=== PATIENT | female | born 1975 | race Caucasian/White ===

== ENCOUNTER 2022-09-01 07:13 | Emergency (ER) | payer BC ==
[~2022-09-01] VITALS: Ht 162.6 cm; Wt 81.3 kg
[2022-09-01 07:49] LABS: BASO # 0.06 K/mm3 (0.02-0.10); EOS % 2.7 % (1.0-5.0); HEMATOCRIT 37.4 % (37.0-47.0); HEMOGLOBIN 12.5 g/dL (12.5-16.0); LYMPH# 2.39 K/mm3 (1.50-4.00); MEAN CELL VOLUME 92 fl (78-100); MEAN CORPUSCULAR HEMOGLOBIN 31 pg (27-31); MEAN CORPUSCULAR HGB CONC 33 g/dL (33-37); MEAN PLATELET VOLUME 9.1 fl (7.4-10.4); MONO # 0.64 K/mm3 (0.20-0.80); NEU # 7.62 K/mm3 (1.40-6.50); PLATELET COUNT 322 K/mm3 (130-400); RED BLOOD COUNT 4.05 M/mm3 (4.10-5.30); RED CELL DISTRIBUTION WIDTH 13.5 % (11.5-14.5); WHITE BLOOD COUNT 11.1 K/mm3 (4.8-10.8)
[2022-09-01] MEDS ORDERED: FISH OIL 1,4001 EACH PO (07:49)
[2022-09-01] MEDS ORDERED: CALCIUM500 M1 PO (07:49)
[2022-09-01] MEDS ORDERED: CYMBALTA60 M1 PO (07:49)
[2022-09-01 07:51] LABS: POTASSIUM 3.5 mmol/L (3.5-5.1)
[2022-09-01 07:52] LABS: CALCIUM 8.3 mg/dL (8.3-10.5)
[2022-09-01] MEDS ORDERED: NORCO 325 MG-51 TA1 PO (07:52)
[2022-09-01 07:53] LABS: TOTAL PROTEIN 7.1 g/dL (6.4-8.3)
[2022-09-01] MEDS ORDERED: HYDROXYZINE HCL25 M1 PO (07:53)
[2022-09-01] MEDS ORDERED: LEVOTHYROXINE112 MC1 PO (07:53)
[2022-09-01] MEDS ORDERED: TOPROL XL 25MG25 MG PO (07:54)
[2022-09-01] MEDS ORDERED: LOSARTAN POTASS25 MG PO (07:54)
[2022-09-01 07:55] LABS: TOTAL BILIRUBIN 0.6 mg/dL (0.2-1.2)
[2022-09-01] MEDS ORDERED: MULTI-VITAMIN1 EACH PO (07:55)
[2022-09-01] MEDS ORDERED: VITAMIN D350 MCG PO (07:56)
[2022-09-01 08:12] LABS: URINE APPEARANCE CLOUDY; URINE BILIRUBIN NEGATIVE (NEGATIVE); URINE BLOOD 50 ery/uL (NEGATIVE); URINE COLOR DK YELLOW; URINE GLUCOSE NEGATIVE (NEGATIVE); URINE KETONE NEGATIVE (NEGATIVE); URINE LEUKOCYTE ESTERASE 1+ (NEGATIVE); URINE NITRATE NEGATIVE (NEGATIVE); URINE PROTEIN(semi-quant) 1+ (NEGATIVE); URINE UROBILINOGEN NORMAL (NORMAL)
[2022-09-01 08:13] LABS: URINE MUCUS PRESENT (NOT PRESENT)
[2022-09-01] MEDS ORDERED: LEVOTHYROXINE125 MCG PO (09:07)
[2022-09-01 09:25] VITALS: BP 133/85
== END 2022-09-01 09:25 | disposition home or self-care (01) ==
LOC: ED 07:13
PROVIDERS: Family Medicine
DX: S06.0XAA Concussion with loss of consciousness status unknown, initial encounter (principal); S01.01XA Laceration without foreign body of scalp, initial encounter; S01.311A Laceration without foreign body of right ear, initial encounter; Z28.310 Unvaccinated for COVID-19; W18.30XA Fall on same level, unspecified, initial encounter; W22.8XXA Striking against or struck by other objects, initial encounter

== ENCOUNTER → 2022-11-03 | Outpatient (CLI) | payer BC ==
[~2022-11-03] MED LIST: CALCIUM500 M1 PO; CYMBALTA60 M1 PO; FISH OIL 1,4001 EACH PO; HYDROXYZINE HCL25 M1 PO; LEVOTHYROXINE112 MC1 PO; LEVOTHYROXINE125 MCG PO; LOSARTAN POTASS25 MG PO; MULTI-VITAMIN1 EACH PO; NORCO 325 MG-51 TA1 PO; TOPROL XL 25MG25 MG PO; VITAMIN D350 MCG PO; ZOFRAN ODT4 MG PO
== END ==
LOC: RAD 10:32
DX: R10.9 Unspecified abdominal pain (principal)

== ENCOUNTER → 2023-04-20 | Outpatient (CLI) | payer BC | LOC: LAB 16:30 | DX: R53.83 Other fatigue (principal); Z20.822 Contact with and (suspected) exposure to COVID-19 ==

== ENCOUNTER → 2023-08-17 | Outpatient (CLI) | payer BC ==
[~2023-08-17] MED LIST changes: +DESYREL50 MG PO; +MELOXICAM15 MG PO
[2023-08-17 13:11] LABS: BASO # 0.04 K/mm3 (0.02-0.10); EOS # 0.35 K/mm3 (0.04-0.40); EOS % 3.4 % (1.0-5.0); HEMATOCRIT 37.9 % (37.0-47.0); HEMOGLOBIN 12.5 g/dL (12.5-16.0); LYMPH# 1.96 K/mm3 (1.50-4.00); MEAN CELL VOLUME 91 fl (78-100); MEAN CORPUSCULAR HEMOGLOBIN 30 pg (27-31); MEAN CORPUSCULAR HGB CONC 33 g/dL (33-37); MEAN PLATELET VOLUME 9.5 fl (7.4-10.4); MONO # 0.62 K/mm3 (0.20-0.80); NEU # 7.14 K/mm3 (1.40-6.50); PLATELET COUNT 320 K/mm3 (130-400); RED BLOOD COUNT 4.19 M/mm3 (4.10-5.30); RED CELL DISTRIBUTION WIDTH 13.6 % (11.5-14.5); WHITE BLOOD COUNT 10.2 K/mm3 (4.8-10.8)
[2023-08-17 13:26] LABS: ALBUMIN 3.9 g/dL (3.5-5.0); SODIUM 140 mmol/L (136-145)
[2023-08-17 13:27] LABS: CALCIUM 8.2 mg/dL (8.3-10.5)
[2023-08-17 13:28] LABS: GLUCOSE 109 mg/dL (65-105); TOTAL PROTEIN 6.6 g/dL (6.4-8.3)
[2023-08-17 13:29] LABS: CARBON DIOXIDE 23 mmol/L (22-29)
[2023-08-17 13:30] LABS: TOTAL BILIRUBIN 0.5 mg/dL (0.2-1.2)
[2023-08-17 13:33] LABS: AST-SGOT 14 U/L (5-34)
[2023-08-17 13:35] LABS: ALT/SGPT 14 U/L (0-55)
[2023-08-17 13:43] LABS: TROPONIN-I < 0.030 ng/mL (0.00-0.033)
== END ==
LOC: LAB 12:50 → AMSURD 12:50
PROVIDERS: Nurse Practitioner Family
DX: R00.2 Palpitations (principal)

== ENCOUNTER → 2023-08-17 | Outpatient (CLI) | payer BC | LOC: AMSURD 13:17 | DX: R00.2 Palpitations (principal) ==

== ENCOUNTER 2024-09-04 10:35 | Emergency (ER) | payer BC ==
[~2024-09-04] VITALS: Ht 162.6 cm; Wt 75.0 kg
[2024-09-04] MEDS ORDERED: Lidocaine 4% Topical Patch TP ONE (11:00)
[2024-09-04 11:08] LABS: BASO # 0.02 K/mm3 (0.02-0.10); EOS % 2.1 % (1.0-5.0); HEMATOCRIT 38.7 % (37.0-47.0); HEMOGLOBIN 12.9 g/dL (12.5-16.0); LYMPH# 1.82 K/mm3 (1.50-4.00); MEAN CELL VOLUME 93 fl (78-100); MEAN CORPUSCULAR HEMOGLOBIN 31 pg (27-31); MEAN CORPUSCULAR HGB CONC 33 g/dL (33-37); MEAN PLATELET VOLUME 9.3 fl (7.4-10.4); MONO # 0.61 K/mm3 (0.20-0.80); NEU # 6.63 K/mm3 (1.40-6.50); PLATELET COUNT 315 K/mm3 (130-400); RED BLOOD COUNT 4.17 M/mm3 (4.10-5.30); RED CELL DISTRIBUTION WIDTH 13.4 % (11.5-14.5); WHITE BLOOD COUNT 9.3 K/mm3 (4.8-10.8)
[2024-09-04 11:16] LABS: ALBUMIN 4.2 g/dL (3.5-5.0); SODIUM 140 mmol/L (136-145)
[2024-09-04 11:17] LABS: CALCIUM 8.3 mg/dL (8.3-10.5)
[2024-09-04 11:18] LABS: GLUCOSE 100 mg/dL (65-105); TOTAL PROTEIN 6.9 g/dL (6.4-8.3)
[2024-09-04 11:19] LABS: CARBON DIOXIDE 20 mmol/L (22-29)
[2024-09-04 11:20] LABS: TOTAL BILIRUBIN 0.4 mg/dL (0.2-1.2)
[2024-09-04 11:23] LABS: AST-SGOT 14 U/L (5-34)
[2024-09-04 11:25] LABS: ALT/SGPT 9 U/L (0-55); LIPASE 60 U/L (8-78)
[2024-09-04 11:34] LABS: TROPONIN-I < 0.030 ng/mL (0.00-0.033)
[2024-09-04 12:23] VITALS: BP 133/92
== END 2024-09-04 12:23 | disposition home or self-care (01) ==
LOC: ED 10:35
PROVIDERS: Physician Assistant
DX: R07.89 Other chest pain (principal); R42 Dizziness and giddiness